=== PATIENT | female | born 1945 | race Caucasian/White ===

== ENCOUNTER 2021-06-11 16:52 | Inpatient (IN) | payer OTHER ==
[~2021-06-11] VITALS: Ht 152.4 cm; Wt 54.0 kg
--- NOTE | ~2021-06-11 | PROC ---
[address] [address] PROCEDURE REPORT Name: VIDHYAKENIA Aide Room: [address] IN .R.#: [id number] Admission: 06/11/21 Attend Phys: Ana María Anderson MD Discharge: 06/15/21 Date of : 41 Report #: [id number] THIS REPORT FOR: cc: Shira Leija MD,Shira HANNA GAURAV,Medical Records Staff ~ For GI report, please see the Provation report in Perceptive 7 content. By: 0700Medical Records Staff [facility] /PJ
[2021-06-11 16:58] VITALS: BP 102/49
[2021-06-11 19:10] LABS: ABSOLUTE BASOPHILS 0.1 thou/uL (0.0-0.2); ABSOLUTE LYMPHOCYTES 1.1 thou/uL (0.8-5.3); ABSOLUTE MONOCYTES 0.6 thou/uL (0.0-1.2); ABSOLUTE NEUTROPHILS 9.9 thou/uL (1.6-8.1); BASOPHILS 0.5 %; EOSINOPHILS 0.1 %; HEMATOCRIT 40.6 % (37.0-47.0); HEMOGLOBIN 13.2 gm/dL (12.0-15.0); LYMPHOCYTES 9.1 %; MCH 28.5 pg (26.0-34.0); MCHC 32.6 g/dL (28.0-37.0); MCV 87.4 fL (80.0-100.0); MONOCYTES 5.5 %; MPV 7.2 fl. (7.2-11.1); NUCLEATED RBCS 0 /100WBC; PLATELET COUNT* 289 thou/uL (150-400); POLYS 84.8 %; RBC 4.65 mil/uL (4.20-5.00); RDW-CV 15.7 % (10.5-14.5); WBC 11.7 thou/uL (4.0-11.0)
[2021-06-11 19:18] LABS: CALCIUM 8.9 mg/dL (8.5-10.1); POTASSIUM 3.3 mmol/L (3.5-5.1)
[2021-06-11 19:23] LABS: ALBUMIN 3.9 g/dL (3.4-5.0); TOTAL BILIRUBIN 0.5 mg/dL (<0.1-1.0)
[2021-06-11 23:17] VITALS: BP 110/47
[2021-06-12 04:00] VITALS: BP 97/29
[2021-06-12] MEDS ORDERED: MELOXICAM15 MG PO (06:49)
[2021-06-12] MEDS ORDERED: LISINOPRIL20 MG PO (06:49)
[2021-06-12] MEDS ORDERED: LEVO-T100 MCG PO (06:49)
[2021-06-12] MEDS ORDERED: TOPROL XL25 MG PO (06:50)
[2021-06-12] MEDS ORDERED: PRILOSEC OTC20 MG PO (06:51)
[2021-06-12] MEDS ORDERED: EZALLOR SPRINKL10 MG PO (06:52)
[2021-06-12] MEDS ORDERED: ZANAFLEX4 M1 PO (06:53)
[2021-06-12 08:00] VITALS: BP 95/52
[2021-06-12 10:45] LABS: URINE BILIRUBIN NEGATIVE (Negative); URINE BLOOD TRACE (Negative); URINE CLARITY CLEAR; URINE COLOR YELLOW; URINE GLUCOSE-RANDOM NEGATIVE (Negative); URINE KETONES NEGATIVE (Negative); URINE LEUKOCYTES-REFLEX NEGATIVE (Negative); URINE NITRITE-REFLEX NEGATIVE (Negative); URINE PROTEIN NEGATIVE (Negative); URINE UROBILINOGEN 0.2 E.U./dl (0.2-1.0)
[2021-06-12 12:00] VITALS: BP 125/44
--- NOTE | 2021-06-12 12:46 | EKG ---
[place] [address] ELECTROCARDIOGRAM REPORT Name: KENIA KEE Room: [place] [address] ADM IN [facility]#: [id number] Admission: 06/11/21 Attend Phys: Ana María Anderson, Discharge: Date of : 41 Date of Service: 06/11/211851 Report #: [id number] THIS REPORT FOR: //name// [facility] ED Test Date: 2021-06-11 Test Time: 18:52:24 Pat Name: KENIA KEE Department: Room: [facility] Gender: F Vp Software: JACINTO : 1945 Requested By: Lion Reynolds Order Number: [id number] MD: Ayo Valenzuela Measurements Intervals Boelus Rate: 65 P: 43 [place]: 188 QRS: 42 QRSD: 97 T: 247 QT: 358 QTc: 373 Interpretive Statements Sinus rhythm Nonspecific repol abnormality, diffuse leads No previous ECG available for comparison Electronically Signed On 06-12-2021 12:46:13 [employer] by Ayo Valenzuela [email or web address] <ELECTRONICALLY SIGNED> By: Andrew Valenzuela MD, [facility] 06/12/21 1246 51 51 Andrew Valenzuela MD, [facility] /EPI
[2021-06-12] MEDS ORDERED: NEURONTIN 300M300 M2 PO ×2 (14:56→15:52)
[2021-06-12 15:57] VITALS: BP 134/42
[2021-06-12 20:00] VITALS: BP 137/41
[2021-06-13] VITALS (7 sets, daily range): BP systolic 117–160; BP diastolic 42–76
[2021-06-13 04:23] LABS: HEMATOCRIT 33.9 % (37.0-47.0); MCH 28.8 pg (26.0-34.0); MCHC 32.5 g/dL (28.0-37.0); MCV 88.7 fL (80.0-100.0); MPV 7.3 fl. (7.2-11.1); RBC 3.82 mil/uL (4.20-5.00); RDW-CV 16.3 % (10.5-14.5); WBC 7.2 thou/uL (4.0-11.0)
[2021-06-13 04:47] LABS: ALBUMIN 2.9 g/dL (3.4-5.0); CALCIUM 8.5 mg/dL (8.5-10.1); MAGNESIUM 1.7 mg/dL (1.8-2.4); POTASSIUM 4.3 mmol/L (3.5-5.1); TOTAL BILIRUBIN 0.2 mg/dL (<0.1-1.0)
[2021-06-13 04:50] LABS: CREATININE 1.5 mg/dL (0.6-1.3)
[2021-06-14] VITALS: BP 179/64
[2021-06-14 04:00] VITALS: BP 133/54
[2021-06-14 06:09] LABS: HEMATOCRIT 32.7 % (37.0-47.0); HEMOGLOBIN 11.1 gm/dL (12.0-15.0); MCH 29.3 pg (26.0-34.0); MCHC 33.9 g/dL (28.0-37.0); MCV 86.2 fL (80.0-100.0); RBC 3.8 mil/uL (4.20-5.00); RDW-CV 15.8 % (10.5-14.5); WBC 6.7 thou/uL (4.0-11.0)
[2021-06-14 06:53] LABS: ALBUMIN 2.9 g/dL (3.4-5.0); CALCIUM 8.4 mg/dL (8.5-10.1); CREATININE 0.8 mg/dL (0.6-1.3); MAGNESIUM 1.6 mg/dL (1.8-2.4); POTASSIUM 3.5 mmol/L (3.5-5.1); TOTAL BILIRUBIN 0.3 mg/dL (<0.1-1.0)
[2021-06-14 08:00] VITALS: BP 162/69
--- NOTE | 2021-06-14 13:12 | EKG ---
[place] [address] ELECTROCARDIOGRAM REPORT Name: KENIA KEE Room: [address] ADM IN M.R.#: [id number] Admission: 06/11/21 Attend Phys: Ana María Anderson, Discharge: Date of : 41 Date of Service: 06/14/21 0844 Report #: [id number] THIS REPORT FOR: //name// [facility] Test Date: 2021-06-14 Test Time: 08:44:02 Pat Name: KENIA KEE Department: Room: [address] Gender: F Maintenance Manager: ELDON : 1945 Requested By: Mark Pickering Order Number: [id number] MD: Mandeep Bolivar Measurements Intervals Aubrey Rate: 65 P: 41 CA: 176 QRS: 36 QRSD: 91 T: 53 QT: 446 QTc: 464 Interpretive Statements Sinus rhythm Baseline wander in lead(s) V4 Compared to ECG 06/11/2021 18:52:24 T wave abnormalities no longer noted Electronically Signed On 06-14-2021 13:12:29 CHANGE ROOM ATTENDANT by Mandeep Bolivar [email or web address] <ELECTRONICALLY SIGNED> By: Mandeep Bolivar MD, [facility] 06/14/21 1312 0844 0844 Mandeep Bolivar MD, [facility] /EPI
[2021-06-14 19:45] VITALS: BP 155/54
[2021-06-14 23:41] VITALS: BP 119/43
[2021-06-15 04:00] VITALS: BP 145/49
[2021-06-15 04:33] LABS: HEMATOCRIT 32.2 % (37.0-47.0); MCH 29.1 pg (26.0-34.0); MCV 85.5 fL (80.0-100.0); RBC 3.76 mil/uL (4.20-5.00); RDW-CV 16.5 % (10.5-14.5); WBC 6.2 thou/uL (4.0-11.0)
[2021-06-15 04:59] LABS: ALBUMIN 2.7 g/dL (3.4-5.0); CREATININE 0.9 mg/dL (0.6-1.3); MAGNESIUM 1.4 mg/dL (1.8-2.4); POTASSIUM 3.5 mmol/L (3.5-5.1); TOTAL BILIRUBIN 0.4 mg/dL (<0.1-1.0); TOTAL PROTEIN 5.7 g/dL (6.4-8.2)
[2021-06-15 09:00] VITALS: BP 136/46
[2021-06-15 12:00] VITALS: BP 130/40; BP 133/50
[2021-06-15] MEDS ORDERED: DICYCLOMINE HCL20 MG PO (13:31)
[2021-06-15 13:39] VITALS: BP 133/50
--- NOTE | 2021-06-17 11:07 | PATH ---
[address] [address] PATHOLOGY RPT PROCEDURE Name: VIDHYASHYANN WHIPPLETY Aide Room: [address] IN M.R.#: [id number] Admission: 06/11/21 Date of : 41 Discharge: 06/15/21 Report #: [id number] Path Case #: [id number] [facility] Accession Number: [id number] . 01 Material submitted: . PART A: small bowel - SMALL BOWEL BIOPSY FOR CHRONIC DIARRHEA PART B: colon - RANDOM COLON BIOPSY . 01 Clinical history: . EGD AND COLONOSCOPY . 02 Diagnosis: A. Small bowel biopsy: - Benign small intestinal mucosa with mild to moderate atrophy and prominent intraepithelial lymphocytosis, suspicious for celiac disease. See comment. . B. Random colon biopsy: - Benign colonic mucosa with prominent increased lymphoplasmacytic infiltrate, negative for cryptitis, granulomas and dysplasia. See comment. [facility] 06/16/2021 1024 Local . 02 Comment: The small bowel biopsies (A) show benign small intestinal mucosa with a few partially preserved villi but with mostly mild to moderately flattened/atrophic features and all fragments show a prominent intraepithelial lymphocytosis. Plasma cells are present in the lamina propria. The random colon biopsies (B) each show benign colonic mucosa with an increase of generally superficially concentrated lymphoplasmacytic infiltrate but without significant intraepithelial lymphocytosis and therefore insufficient to qualify for microscopic (lymphocytic) colitis. Some crypt disarray is noted but there is no definite crypt distortion and no definite basal lymphoplasmacytosis. Mild but very focal thickening of the subluminal collagen plate is present. . Especially in the setting of chronic diarrhea, the findings are suspicious for celiac disease although similar features can be seen in autoimmune disorders, soy and soy protein allergies, some infections and medications. (LISSETTE/db; 06/16/2021) . 02 Electronically signed: . Evan Tadeo MD, Pathologist NPI- [id number] . 01 Gross description: . A. The specimen is received in formalin, labeled "Kaylie Kee, small bowel biopsy for chronic diarrhea". Received are [address] [place] [address] PATHOLOGY RPT PROCEDURE Name: KAYLIE KEE Room: [address] DIS IN M.R.#: [id number] Admission: 06/11/21 Date of : 41 Discharge: 06/15/21 Report #: [id number] Path Case #: [id number] tissue ranging in size from 0.2 cm to 0.5 cm in maximum dimensions. The specimen is submitted entirely in cassette A1. . B. The specimen is received in formalin, labeled "Vidhya, Kaylie, random colon biopsy". Received are multiple segments of pale pierre tissue ranging in size from 0.3 to 0.7 cm in maximum dimensions. The specimen is submitted entirely in cassette B1.([facility]; 06/15/2021) [facility] 06/15/2021 1146 Local . 02 Pathologist provided ICD-10: K63.89 . 02 CPT . 227131, [id number] Specimen Comment: A courtesy copy of this report has been sent to [phone] Specimen Comment: [phone], Specimen Comment: Report sent to , DR ORR / DR ESCALONA Specimen Comment: A duplicate report has been generated due to demographic updates. Performed at: 01 [facility] [address] [facility] [address], [place] [id number] MD David Schwab MD Phone: [phone] Performed at: [address] [facility] [place] [address] [address], [place], [place] [id number] MD Evan Tadeo MD Phone: [phone]
== END 2021-06-15 15:00 | disposition home or self-care (01) | DRG 871 ==
LOC: M.ERS 16:52 → M.TBA-ER 19:39 → M.2W 06-13 20:46
PROVIDERS: Physician Assistant; ADMIT Internal Medicine; ATTEND Internal Medicine
PROC: 0DBE8ZX Excision of Large Intestine, Via Natural or Artificial Opening Endoscopic, Diagnostic (ICD-10-PCS; principal; 2021-06-14)
PROC: 0DB98ZX Excision of Duodenum, Via Natural or Artificial Opening Endoscopic, Diagnostic (ICD-10-PCS; principal; 2021-06-14)
DX: A41.9 Sepsis, unspecified organism (principal); N17.0 Acute kidney failure with tubular necrosis; A09 Infectious gastroenteritis and colitis, unspecified; M19.90 Unspecified osteoarthritis, unspecified site; I10 Essential (primary) hypertension; E78.5 Hyperlipidemia, unspecified; I95.9 Hypotension, unspecified; F17.210 Nicotine dependence, cigarettes, uncomplicated; I71.2 Thoracic aortic aneurysm, without rupture; R73.9 Hyperglycemia, unspecified; K44.9 Diaphragmatic hernia without obstruction or gangrene; K57.30 Diverticulosis of large intestine without perforation or abscess without bleeding; E86.0 Dehydration; D17.5 Benign lipomatous neoplasm of intra-abdominal organs; Z20.822 Contact with and (suspected) exposure to COVID-19; Z90.710 Acquired absence of both cervix and uterus